=== PATIENT | male | born 1945 | race Caucasian/White ===

== ENCOUNTER 2021-08-15 07:32 | Day surgery (SDC) | payer MEDICARE ==
[2021-08-09 12:44] LABS: BASOPHILS % (AUTO) 0.7 % (0.0-5.0); EOSINOPHILS % (AUTO) 2.3 % (0.0-8.0); HEMATOCRIT 42.2 % (42-54); LYMPHOCYTES % (AUTO) 20.2 % (21.0-51.0); MEAN CORPUSCULAR HEMOGLOBIN 29.4 pg (27.0-33.0); MEAN CORPUSCULAR HGB CONC 32.2 g/dL (32.0-36.0); MEAN CORPUSCULAR VOLUME 91.3 fL (79-99); NEUTROPHILS % (AUTO) 64.5 % (40.0-77.0); PLATELET COUNT (AUTO) 227 K/uL (130-400); RED BLOOD CELL COUNT(AUTO) 4.62 MIL/uL (4.50-6.20); RED CELL DISTRIBUTION WIDTH 13.5 % (11.0-15.5); WHITE BLOOD COUNT (AUTO) 7.7 K/uL (4.8-10.8)
[2021-08-09 12:56] LABS: CREATININE 3.1 mg/dL (0.5-1.5); POTASSIUM 5.2 mmol/L (3.5-5.1)
[2021-08-09 12:58] LABS: INR 0.98 (0.85-1.15); PROTHROMBIN TIME 10.7 SEC (9.6-11.6)
[2021-08-09 12:59] LABS: PARTIAL THROMBOPLASTIN TIME 25.7 SEC (26.3-35.5)
[~2021-08-15] VITALS: Ht 172.7 cm; Wt 102.6 kg
[2021-08-15] VITALS (15 sets, daily range): BP systolic 136–164; BP diastolic 60–72
[~2021-08-15 07:32] MED LIST: AMLO-257 PO; CEFTRIAXONE 1G VIAL IVP SCH; DOXA4TAB3 PO; FURO20TA4 PO; INSU3INS5 SQ; LORA10TA7 PO; MONT-39 PO
[2021-08-15] MEDS ORDERED: 0.9%NACL 1000ML 1,000 ML IV ONE (07:58)
[2021-08-15] MEDS ORDERED: ALPR0.5T8 PO (08:38)
[2021-08-15] MEDS ORDERED: SUCCINYLCHOLINE 200MG/10ML SYR ONE (09:32)
[2021-08-15] MEDS ORDERED: LIDOCAINE PF 100MG/5ML (2%) SYRINGE 5ML ONE ×2 (09:32→09:33)
[2021-08-15] MEDS ORDERED: DEXAMETHASONE SOD PHOSPHATE 10MG/ML 1ML VIAL ONE (09:32)
[2021-08-15] MEDS ORDERED: FENTANYL CITRATE PF 50 MCG/1 ML 2ML VIAL ONE (09:33)
[2021-08-15] MEDS ORDERED: NEOSTIGMINE 5MG/5ML SYR IV ONE (09:33)
[2021-08-15] MEDS ORDERED: PROPOFOL 10 MG/ML 20ML VIAL IV ONE (09:33)
[2021-08-15] MEDS ORDERED: ROCURONIUM 10MG/1ML SYR 10 MG/ML ML ONE (09:33)
[2021-08-15] MEDS ORDERED: GLYCOPYRROLATE 1 MG/5 ML SYRINGE ONE (09:33)
[2021-08-15] MEDS ORDERED: ATROPINE 1MG SYG IVP ONE (09:56)
[2021-08-15] MEDS ORDERED: OPIUM/BELLADONNA ALKALOIDS 1 EACH SUPP.RECT RC ONE (10:13)
[2021-08-15] MEDS ORDERED: MEPERIDINE-PF 25 MG/ML SYG ONE ×2 (10:45→10:54)
[2021-08-15] MEDS ORDERED: PHENAZOPYRIDINE HCL 200 MG TABLET ONE (12:02)
== END 2021-08-15 12:10 | disposition home or self-care (01) ==
LOC: DAH 07:32
PROVIDERS: ATTEND Urology
DX: N40.1 Benign prostatic hyperplasia with lower urinary tract symptoms (principal); R35.1 Nocturia; R39.15 Urgency of urination; R35.0 Frequency of micturition; I12.9 Hypertensive chronic kidney disease with stage 1 through stage 4 chronic kidney disease, or unspecified chronic kidney disease; E11.22 Type 2 diabetes mellitus with diabetic chronic kidney disease; N18.9 Chronic kidney disease, unspecified; Z87.891 Personal history of nicotine dependence; E66.01 Morbid (severe) obesity due to excess calories; Z88.2 Allergy status to sulfonamides; Z88.6 Allergy status to analgesic agent; Z79.899 Other long term (current) drug therapy; Z20.822 Contact with and (suspected) exposure to COVID-19
CPT/HCPCS: 36415; 52648; 80048; 82948 ×2; 85025; 85610; 85730; 87635; 93005; A4215; A4221; A4222; A4223; A4340; A4354; A4358; A4663; A6260; C9803; J0330; J0461; J0696; J1100; J2001 ×2; J2175 ×2; J2704; J2710; J3010; J3490; J7030; J7120